=== PATIENT | male | born 1950 | race Caucasian/White ===

== ENCOUNTER 2023-07-19 12:45 | Emergency (ER) | payer OTHER ==
[~2023-07-19] VITALS: Ht 180.3 cm; Wt 88.4 kg
[2023-07-19 13:56] VITALS: BP 134/88
== END 2023-07-19 13:57 | disposition home or self-care (01) | DRG 605 ==
LOC: ED 12:45
PROC: 0HQFXZZ Repair Right Hand Skin, External Approach (ICD-10-PCS; principal; 2023-07-19)
DX: S61.212A Laceration without foreign body of right middle finger without damage to nail, initial encounter (principal); I10 Essential (primary) hypertension; W26.8XXA Contact with other sharp object(s), not elsewhere classified, initial encounter; Y92.009 Unspecified place in unspecified non-institutional (private) residence as the place of occurrence of the external cause

== ENCOUNTER 2023-07-26 10:46 | Emergency (ER) | payer BC ==
[~2023-07-26] VITALS: Ht 180.3 cm; Wt 93.0 kg
[2023-07-26 10:52] VITALS: BP 131/70
[2023-07-26 11:00] VITALS: BP 133/80
[2023-07-26 11:19] VITALS: BP 133/80
== END 2023-07-26 11:21 | disposition home or self-care (01) | DRG 950 ==
LOC: ED 10:46
DX: S61.411D Laceration without foreign body of right hand, subsequent encounter (principal); X58.XXXD Exposure to other specified factors, subsequent encounter; I10 Essential (primary) hypertension; E78.5 Hyperlipidemia, unspecified